=== PATIENT | male | born 1980 | race Caucasian/White ===

== ENCOUNTER → 2021-10-13 | Outpatient (CLI) | payer OTHER ==
--- NOTE | 2021-10-13 11:03 | US ---
EXAMINATION TYPE: US abdomen complete DATE OF EXAM: 10/13/2021 COMPARISON: NONE CLINICAL HISTORY: R74.8 ELEVATED LFT'S. elevated liver enzymes EXAM MEASUREMENTS: Liver Length: 14.6 cm Gallbladder Wall: .2 cm CBD: .5 cm Spleen: 11.0 cm Right Kidney: 10.1 x 4.1 x 5.7 cm Left Kidney: 9.6 x 5.3 x 4.5 cm Pancreas: wnl Liver: wnl Gallbladder: wnl Evidence for sonographic Monahan's sign: No CBD: wnl Spleen: wnl Right Kidney: wnl Left Kidney: wnl Upper IVC: wnl Abd Aorta: wnl The liver is homogenous. The intrahepatic portion of the IVC and proximal abdominal aorta are within normal limits. There is no evidence of cholelithiasis. Common bile duct is unremarkable. The visu alized portions of the pancreas are homogenous. The spleen is unremarkable. Kidneys are symmetric a nd free of hydronephrosis. No renal lesions are seen. IMPRESSION: No discrete abnormality seen.
== END | disposition home or self-care (01) ==
LOC: RADUSWWP 10:11
PROVIDERS: ATTEND Family Medicine
DX: R74.8 Abnormal levels of other serum enzymes (principal)
CPT/HCPCS: 76700